=== PATIENT | female | born 1990 ===

== ENCOUNTER 2019-01-10 09:30 | Emergency (ER) | payer MEDICAID ==
--- NOTE | 2019-01-10 09:43 | C.PDOC ---
History Of Present Illness 28 year old female presents to ED with complaint of pain and swelling to the left ankle. Patient was jumping on a trampoline 2 weeks ago and twisted her left ankle. Patient reports that it has not gotten better. She denies fever,chills, nausea, and vomiting. Time Seen by Provider: 01/10/19 09:37 Chief Complaint (Nursing): Lower Extremity Problem/Injury History Per: Patient History/Exam Limitations: no limitations Onset/Duration Of Symptoms: Other (2 weeks) Current Symptoms Are (Timing): Still Present - Ankle/Foot Description Of Injury: Twisted Past Medical History Reviewed: Historical Data, Nursing Documentation, Vital Signs Vital Signs: Last Vital Signs Temp 97.6 F 01/10/19 09:32 Pulse 93 H 01/10/19 09:32 Resp 20 01/10/19 09:32 BP 126/84 01/10/19 09:32 Pulse Ox 100 01/10/19 09:32 - Medical History PMH: No Chronic Diseases Surgical History: No Surg Hx Family History: States: Unknown Family Hx Review Of Systems Constitutional: Negative for: Fever, Chills, Weakness Gastrointestinal: Negative for: Nausea, Vomiting Musculoskeletal: Positive for: Other (pain and swelling to the left ankle) Neurological: Negative for: Weakness, Numbness, Dizziness Physical Exam - Physical Exam Appears: Non-toxic Skin: Normal Color, Warm, Dry Head: Atraumatic, Normacephalic Neck: Normal ROM, Supple Chest: Symmetrical, No Deformity Extremity: Tenderness (left malleolar of the left ankle), Swelling (left malleolar of the left ankle) Neurological/Psych: Oriented x3, Normal Speech, Normal Cognition ED Course And Treatment O2 Sat by Pulse Oximetry: 100 (in RA) - Other Rad Left Ankle X-ray X-Ray: Interpreted by Me, Viewed By Me Interpretation: IMPRESSION: Extensive soft tissue swelling. No acute displaced fracture or dislocation identified. If symptoms persist or if there is clinical concern, x-ray follow-up in 7-10 days should be considered. Medical Decision Making Medical Decision Making: Impression: 28 year old female with pain and swelling to the left ankle. Plan: Patient given Motrin PO and Tylenol PO. Left ankle X-ray ordered for patient. Dx: Left ankle sprain with significant swelling. Upon reassessment, patient is resting comfortably, in no distress, and is stable for discharge. Discussed results and plan with patient who expresses understanding. All questions answered and there is agreement with the plan to discharge home with instructions. Return if symptoms persist or worsen. Disposition Counseled Patient/Family Regarding: Studies Performed, Diagnosis, Need For Followup, Rx Given - Disposition Disposition: HOME/ ROUTINE Disposition Time: 10:36 Condition: STABLE Prescriptions: Ibuprofen [Motrin] 600 mg PO TID #15 tab Instructions: Ankle Sprain Forms: [facility] ([place]), General Discharge Instructions - POA Present On Arrival: None - Clinical Impression Clinical Impression: Left ankle sprain - Scribe Statement The provider has reviewed the documentation as recorded by the Scribe (Tamie Valverde) All medical record entries made by the Scribe were at my direction and personally dictated by me. I have reviewed the chart and agree that the record accurately reflects my personal performance of the history, physical exam, medical decision making, and the department course for this patient. I have also personally directed, reviewed, and agree with the discharge instructions and disposition.
[2019-01-10 10:52] VITALS: BP 123/80; PULSE 81; RESP 16; TEMP 97.5
--- NOTE | 2019-01-10 11:51 | RAD ---
PROCEDURE: Left Ankle Radiographs. HISTORY: sprain COMPARISON: None available FINDINGS: BONES: No acute displaced fracture. JOINTS: No dislocation. SOFT TISSUES: Extensive soft tissue swelling. No evidence of radiopaque foreign body. OTHER FINDINGS: None. IMPRESSION: Extensive soft tissue swelling. No acute displaced fracture or dislocation identified. If symptoms persist or if there is clinical concern, x-ray follow-up in 7-10 days should be considered.
[2019-01-10 12:09] VITALS: O2SAT 100
== END 2019-01-10 10:55 | disposition home or self-care (01) ==
LOC: C.ER 09:30
DX: S93.402A Sprain of unspecified ligament of left ankle, initial encounter (principal); Y93.44 Activity, trampolining